=== PATIENT | female | born 1985 | race Asian ===

== ENCOUNTER 2016-11-13 16:22 | Day surgery (SDC) | payer OTHER ==
[~2016-11-13] VITALS: Ht 154.9 cm; Wt 54.4 kg
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
--- NOTE | 2016-11-13 17:04 | NUR ---
Patient ambulated to bed 08.
[2016-11-13 17:08] VITALS: BP 109/65
[2016-11-13] MEDS ORDERED: NACL 0.9% 1,000 ML IV ONE (17:10)
--- NOTE | 2016-11-13 17:30 | NUR ---
32/ sent from Dr. Sy Montenegro's office for further evalution of . Pt arrived with prescription stating no cardiac activity. Pt states she has not felt the baby move since last Saturday. Denies pain, denies vaginal bleed. Denies N/V/D/. Denies fever or chills. G-2 P-1. AOX4, ambulates with steady gait. VSS. Citizen Of [place] speaking but prefers Mandarin.
--- NOTE | 2016-11-13 17:43 | NUR ---
Patient will be admitted to care of Dr. Anita Montenegro. Admited to Med/Surg. Will go to room 120-A. Belongings list completed. Report to Anatoly DAVIS.
[2016-11-13 17:57] VITALS: BP 109/65
--- NOTE | 2016-11-13 17:58 | NUR ---
Chart checked and completed. The patient's care was reviewed and supervised by Gordon Early RN.
--- NOTE | 2016-11-13 17:58 | NUR ---
Pt transferred to Med/Surg via w/c accompanied by M/S 120-A.
--- NOTE | 2016-11-13 18:07 | NUR ---
PT ON UNIT. NO S/S OF ACUTE DISTRESS. AAOX4. PT DENIES PAIN OR DISCOMFORT. IV SITE PATENT AND INTACT. PT DENIES VAGINAL BLEEDING AT THIS TIME. VITALS ARE TEMP 97 BP 99/66 HR 65 RR 18 O2 100. CALL LIGHT WITHIN REACH. SAFETY MEASURES ENSURED. WILL CONTINUE TO MONITOR.
--- NOTE | 2016-11-13 19:21 | NUR ---
ENDORSED PLAN OF CARE TO NIGHT RN. PT REMAINS IN STABLE CONDITION.
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
--- NOTE | 2016-11-13 20:00 | NUR ---
DR DELGADILLO IN TO SEE THE PATIENT
[2016-11-13] MEDS ORDERED: LACTATED RINGERS 1,000 ML IV SCH (20:06)
--- NOTE | 2016-11-13 20:06 | NUR ---
PATIENT SIGNED CONSENT FOR SURGERY
[2016-11-13] MEDS ORDERED: PROPOFOL 200 MG/20 ML VIAL IV ONE (20:10)
[2016-11-13] MEDS ORDERED: diphenhydrAMINE 50 MG/ML VIAL IVP PRN (20:10)
[2016-11-13] MEDS ORDERED: HYDROmorphone 1 MG/ML AMP IVP PRN (20:10)
[2016-11-13] MEDS ORDERED: MEPERIDINE 25 MG/ML SYR IVP PRN (20:10)
[2016-11-13] MEDS ORDERED: ONDANSETRON 4 MG/2 ML VIAL IVP PRN ×2 (20:10→20:25)
--- NOTE | 2016-11-13 20:10 | NUR ---
PATIENT OFF UNIT TO SURGERY
[2016-11-13] MEDS ORDERED: MEPERIDINE 25 MG/ML SYR ONE (20:14)
[2016-11-13] MEDS ORDERED: fentaNYL 0.05 MG/ML VIAL ONE (20:14)
[2016-11-13] MEDS ORDERED: MIDAZOLAM 2 MG/2 ML VIAL ONE (20:14)
[2016-11-13] MEDS ORDERED: MORPHINE SULFATE 4 MG/ML SYR IM/IVP PRN (20:25)
[2016-11-13] MEDS ORDERED: ACETAMINOPHEN/CODEINE 300/30MG 1 TAB PO PRN (20:25)
[2016-11-13] MEDS ORDERED: IBUPROFEN 800 MG TAB PO PRN (20:25)
--- NOTE | 2016-11-13 21:15 | NUR ---
PATIENT BACK FROM SURGERY, PATIENT IN STABLE CONDITION, ON ROOM AIR, DENIES PAIN, NO SIGN OF DISTRESS, PERIPAD WITH MINIMAL BLEEDING, VITALS STABLE, TEMP 98.3 HR 75 BP 115/77 O2 SAT 99%. EXPLAINED TO PATIENT NEED TO URINATE AND MONITOR BP BEFORE LEAVING HOSPITAL EXPLAINED TO PATIENT THE NEED TO USE CALL LIGHT BEFORE GETTING OUT OF BED, PATIENT VERBALIZED UNDERSTANDING, PATIENTS FRIEND AT BEDSIDE, CALL LIGHT WITHIN REACH. WILL CONTINUE TO MONITOR.
--- NOTE | 2016-11-13 22:06 | NUR ---
PATIENT RESTING IN BED, NO SIGN OF DISTRESS, CALL LIGHT WITHIN REACH. WILL CONTINUE TO MONITOR.
--- NOTE | 2016-11-13 22:35 | NUR ---
PATIENT VOIDED, AMBULATED TO RESTROOM, STEADY GAIT, PATIENT DENIES PAIN OR DIZZINESS. BLOODY URINE, MINIMAL BLOOD ON PERIPAD, PATIENT STATED SHE IS READY TO GO HOME, BP 118/64 HR 68, O2 SAT AT 99%. WILL PREPARE DISCHARGE PAPERWORK, CHARGE NURSE AWARE.
== END 2016-11-13 23:00 | disposition home or self-care (01) ==
LOC: MED 16:22 → MDS 17:31 → MTU 17:31 → MDS 23:00
PROVIDERS: ATTEND Obstetrics & Gynecology
DX: O02.1 Missed abortion (principal)
CPT/HCPCS: 36415; 59820; 80053; 81001; 84702; 85025; 86886; 86900; 86901; 87081; 87086; 99285; J2175; J2250; J2704; J3010; J7030; J7120